=== PATIENT | female | born 1965 | race Caucasian/White ===

== ENCOUNTER 2020-11-15 15:31 | Emergency (ER) | payer MEDICAID ==
[~2020-11-15] VITALS: Ht 157.5 cm; Wt 131.5 kg
[2020-11-15] MEDS ORDERED: ZOLOFT50 M1 PO (15:48)
[2020-11-15] MEDS ORDERED: DESYREL150 MG PO (15:49)
[2020-11-15] MEDS ORDERED: ULTRAM 50MG TAB50 MG PO (15:49)
[2020-11-15] MEDS ORDERED: ZANAFLEX4 M1 PO (15:49)
[2020-11-15] MEDS ORDERED: LISINOPRIL20 MG PO (15:50)
[2020-11-15] MEDS ORDERED: LAMOTRIGINE250 MG PO (15:50)
[2020-11-15] MEDS ORDERED: IPRATROPIU0.2 MG/1 M INH (15:50)
[2020-11-15] MEDS ORDERED: MOBIC7.5 MG PO (15:51)
[2020-11-15] MEDS ORDERED: CLARITIN10 MG PO (15:51)
[2020-11-15] MEDS ORDERED: MINIPRESS1 MG PO (15:51)
[2020-11-15] MEDS ORDERED: PROTONIX40 M4 PO (15:51)
[2020-11-15] MEDS ORDERED: REQUIP 0.25 M0.25 MG PO (15:52)
[2020-11-15] MEDS ORDERED: ALBUTEROL INH (15:53)
[2020-11-15] MEDS ORDERED: ASA81BEC PO (15:53)
[2020-11-15] MEDS ORDERED: DILTIAZEM ER180 M2 PO (15:54)
[2020-11-15] MEDS ORDERED: FLOVENT INH (15:57)
[2020-11-15] MEDS ORDERED: NEURONTIN300 MG PO (15:57)
[2020-11-15] MEDS ORDERED: HYDROCORTISONE TOP (15:58)
[2020-11-15] MEDS ORDERED: PLAQUENIL200 MG PO (15:59)
[2020-11-15 16:37] LABS: ABSOLUTE BASOPHILS 0.1 thou/uL (0.0-0.2); ABSOLUTE EOSINOPHILS 0.1 thou/uL (0.0-0.7); ABSOLUTE LYMPHOCYTES 1.2 thou/uL (0.8-5.3); ABSOLUTE MONOCYTES 0.6 thou/uL (0.0-1.2); ABSOLUTE NEUTROPHILS 6.3 thou/uL (1.6-8.1); BASOPHILS 0.6 %; EOSINOPHILS 1.7 %; HEMATOCRIT 38.2 % (37.0-47.0); HEMOGLOBIN 12.7 gm/dL (12.0-15.0); LYMPHOCYTES 14.4 %; MCH 28.3 pg (26.0-34.0); MCHC 33.3 g/dL (28.0-37.0); MCV 84.9 fL (80.0-100.0); MONOCYTES 6.9 %; MPV 8.2 fl. (7.2-11.1); NUCLEATED RBCS 0 /100WBC; PLATELET COUNT* 277 thou/uL (150-400); POLYS 76.4 %; RDW-CV 20.8 % (10.5-14.5); WBC 8.3 thou/uL (4.0-11.0)
[2020-11-15 16:42] LABS: CALCIUM 8.8 mg/dL (8.5-10.1); CREATININE 0.7 mg/dL (0.6-1.3); POTASSIUM 4.2 mmol/L (3.5-5.1)
[2020-11-15 16:42] LABS: URINE BILIRUBIN NEGATIVE (Negative); URINE BLOOD NEGATIVE (Negative); URINE CLARITY CLEAR; URINE COLOR YELLOW; URINE GLUCOSE-RANDOM NEGATIVE (Negative); URINE KETONES NEGATIVE (Negative); URINE LEUKOCYTES-REFLEX NEGATIVE (Negative); URINE NITRITE-REFLEX NEGATIVE (Negative); URINE PROTEIN NEGATIVE (Negative); URINE SPECIFIC GRAVITY >= 1.030 (1.005-1.030); URINE UROBILINOGEN 0.2 E.U./dl (0.2-1.0)
[2020-11-15 16:53] LABS: ALBUMIN 3.3 g/dL (3.4-5.0); TOTAL BILIRUBIN 0.1 mg/dL (<0.1-1.0); TOTAL PROTEIN 7.1 g/dL (6.4-8.2)
[2020-11-15] MEDS ORDERED: VENTOLIN HFA 1818 GM INH (17:16)
[2020-11-15] MEDS ORDERED: ZPAK PO (17:16)
[2020-11-15] MEDS ORDERED: TESSALON PERLE100 MG PO (17:16)
[2020-11-15] MEDS ORDERED: MEDROLDOSEPACK PO (17:16)
[2020-11-15 17:17] LABS: ANISOCYTOSIS 2+; PLATELET ESTIMATE ADEQUATE
[2020-11-15 17:35] VITALS: BP 170/76
--- NOTE | 2020-11-16 11:02 | EKG ---
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: : 1965 Requested By: Anne Rand Order Number: [id number] MD: Oli Alexander Measurements Intervals [place] Rate: 97 P: 56 ID: [id number] QRS: 19 QRSD: 100 T: 80 QT: 350 QTc: 445 Interpretive Statements Sinus tachycardia Multiform ventricular premature complexes Low voltage, precordial leads No previous ECG available for comparison Electronically Signed On 11-16-2020 11:02:20 CDT by Oli Alexander [email or web address] <ELECTRONICALLY SIGNED> By: Oli Alexander MD, [facility] 11/16/20 1102 1607 1607 Oli Alexander MD, [facility] /EPI
== END 2020-11-15 17:38 | disposition home or self-care (01) ==
LOC: M.ERS 15:31
PROVIDERS: Nurse Practitioner Family
DX: J44.1 Chronic obstructive pulmonary disease with (acute) exacerbation (principal); Z20.822 Contact with and (suspected) exposure to COVID-19; I11.0 Hypertensive heart disease with heart failure; I50.9 Heart failure, unspecified; G89.29 Other chronic pain; Z88.0 Allergy status to penicillin; Z88.8 Allergy status to other drugs, medicaments and biological substances; Z91.018 Allergy to other foods